=== PATIENT | female | born 1940 ===

== ENCOUNTER 2022-06-12 14:20 | Inpatient (IN) ==
[2022-06-12 17:58] LABS: Basophils % 0.4 % (0.0-0.8); Eosinophils # 0.3 10*3/uL (0.0-0.87); Eosinophils % 2.9 % (0.00-10.9); Hematocrit 36.2 VOL% (35.7-47.0); Hemoglobin 11.5 GM/DL (12.0-16.0); Immature Granulocytes % 0.9 %; Immature Granulocytes Absolute 0.08 #; Lymphocytes # 1.4 10*3/uL (1.4-4.0); Lymphocytes % 15.1 % (21.3-54.2); Mean Corpuscular HGB Conc 31.8 GM/DL (32-36); Mean Corpuscular Volume 91.6 FL (87-102); Mean Platelet Volume 10.3 FL (9.6-12.0); Monocytes # 1.1 10*3/uL (0.11-0.8); Monocytes % 12.3 % (1.7-12.7); Neutrophils % 68.4 % (38.7-73.9); Platelet Count 263 T/CUMM (130-400); Red Blood Count 3.95 MC/CUMM (3.8-5.5); Red Cell Distribution Width 14.6 % (9.3-17.3); White Blood Count 9.3 T/CUMM (4-12)
[2022-06-12 18:10] LABS: Albumin 2.9 G/DL (3.4-5.0); Bilirubin,Total 0.4 MG/DL (0.20-1.00); Calcium 9.3 MG/DL (8.5-10.1); Osmolality,Calculated 284.1 MOS/KG (273-304); Potassium 4.6 MMOL/L (3.5-5.1)
[2022-06-12] MEDS ORDERED: ONDANSETRON 4 MG/2 ML VIAL IV PRN (20:55)
[2022-06-12] MEDS ORDERED: NITROGLYCERIN SL 0.4 MG TABLET SL PRN (21:30)
[2022-06-12] MEDS: INSULIN REGULAR 100 UNIT/ML SUBCUT SCH (23:00)
[2022-06-12] MEDS: HEPARIN DRIP 25,000 UNITS/500 ML PREMIX IV SCH (23:45)
[2022-06-13 05:43] LABS: Basophils % 0.5 % (0.0-0.8); Eosinophils # 0.3 10*3/uL (0.0-0.87); Eosinophils % 3.2 % (0.00-10.9); Hemoglobin 10.5 GM/DL (12.0-16.0); Immature Granulocytes % 0.8 %; Immature Granulocytes Absolute 0.07 #; Lymphocytes # 1.2 10*3/uL (1.4-4.0); Lymphocytes % 13.9 % (21.3-54.2); Mean Corpuscular HGB Conc 30.9 GM/DL (32-36); Mean Corpuscular Volume 90.9 FL (87-102); Monocytes # 1.1 10*3/uL (0.11-0.8); Monocytes % 12.4 % (1.7-12.7); Neutrophils % 69.2 % (38.7-73.9); Platelet Count 240 T/CUMM (130-400); Red Blood Count 3.74 MC/CUMM (3.8-5.5); Red Cell Distribution Width 14.5 % (9.3-17.3); White Blood Count 8.8 T/CUMM (4-12)
[2022-06-13 06:31] LABS: Calcium 9.1 MG/DL (8.5-10.1); Osmolality,Calculated 283.5 MOS/KG (273-304); Potassium 4.5 MMOL/L (3.5-5.1); Thyroid Stimulating Hormone 1.14 uIU/ml (0.358-3.74)
[2022-06-13 08:35] LABS: PT Patient Result 10.8 SECS (10.1-12.1); Partial Thromboplastin Time 44.7 SECS (23.7-32.9)
[2022-06-13] MEDS: EZETIMIBE 10 MG TABLET PO SCH (09:34)
[2022-06-13] MEDS: MAGNESIUM CHLORIDE 64 MG TABLET PO SCH (09:34)
[2022-06-13] MEDS: rOPINIRole 0.25 MG TABLET PO SCH (09:34)
[2022-06-13] MEDS: DAPAGLIFLOZIN 10 MG TABLET PO SCH (09:34)
[2022-06-13] MEDS: POTASSIUM CHLORIDE 20 MEQ TABLET PO SCH (09:35)
[2022-06-13] MEDS: LOSARTAN 50 MG TABLET PO SCH ×2 (09:35→21:01)
[2022-06-13] MEDS: GABAPENTIN 300 MG CAPSULE PO SCH ×3 (09:35→21:00)
[2022-06-13] MEDS: FUROSEMIDE 40 MG TABLET PO SCH (09:35)
[2022-06-13] MEDS: sitaGLIPtin 100 MG TABLET PO SCH (09:35)
[2022-06-13] MEDS: INSULIN REGULAR 100 UNIT/ML SUBCUT SCH ×4 (09:35→21:01)
[2022-06-13] MEDS: MONTELUKAST 10 MG TABLET PO SCH (09:35)
[2022-06-13] MEDS: PANTOPRAZOLE 40 MG TABLET PO SCH ×2 (09:38→21:01)
[2022-06-13] MEDS: carvediloL 3.125 MG TABLET PO SCH (17:13)
[2022-06-13 17:52] LABS: PT Patient Result 11.4 SECS (10.1-12.1)
[2022-06-13 17:58] LABS: Partial Thromboplastin Time 111.3 SECS (23.7-32.9)
[2022-06-13] MEDS ORDERED: DONEPEZIL 5 MG TABLET PO SCH (21:00)
[2022-06-13] MEDS: HEPARIN DRIP 25,000 UNITS/500 ML PREMIX IV SCH (21:01)
[2022-06-14 01:39] LABS: Basophils % 0.3 % (0.0-0.8); Eosinophils # 0.3 10*3/uL (0.0-0.87); Eosinophils % 2.8 % (0.00-10.9); Hematocrit 36.1 VOL% (35.7-47.0); Hemoglobin 11.6 GM/DL (12.0-16.0); Immature Granulocytes % 0.7 %; Immature Granulocytes Absolute 0.06 #; Lymphocytes # 2.1 10*3/uL (1.4-4.0); Lymphocytes % 23.1 % (21.3-54.2); Mean Corpuscular HGB Conc 32.1 GM/DL (32-36); Mean Corpuscular Volume 89.8 FL (87-102); Mean Platelet Volume 10.1 FL (9.6-12.0); Monocytes # 1.3 10*3/uL (0.11-0.8); Monocytes % 13.9 % (1.7-12.7); Neutrophils % 59.2 % (38.7-73.9); Platelet Count 267 T/CUMM (130-400); Red Blood Count 4.02 MC/CUMM (3.8-5.5); Red Cell Distribution Width 14.5 % (9.3-17.3); White Blood Count 9.1 T/CUMM (4-12)
[2022-06-14 01:52] LABS: PT Patient Result 10.9 SECS (10.1-12.1); Partial Thromboplastin Time 88.8 SECS (23.7-32.9)
[2022-06-14 01:55] LABS: Calcium 9.5 MG/DL (8.5-10.1); Osmolality,Calculated 278.5 MOS/KG (273-304); Potassium 3.8 MMOL/L (3.5-5.1)
[2022-06-14] MEDS: INSULIN REGULAR 100 UNIT/ML SUBCUT SCH ×4 (07:31→20:41)
[2022-06-14] MEDS: carvediloL 3.125 MG TABLET PO SCH ×2 (08:38→18:21)
[2022-06-14] MEDS: GABAPENTIN 300 MG CAPSULE PO SCH ×3 (10:15→20:41)
[2022-06-14] MEDS: PANTOPRAZOLE 40 MG TABLET PO SCH ×2 (10:17→20:41)
[2022-06-14] MEDS ORDERED: LIDOCAINE 2% 5 ML VIAL ONE (10:21)
[2022-06-14] MEDS ORDERED: propofoL 200 MG/20 ML VIAL IV ONE (10:21)
[2022-06-14] MEDS ORDERED: PHENYLEPHRINE 1 MG/10 ML SYRINGE IV ONE (10:21)
[2022-06-14] MEDS: LACTATED RINGERS 1,000 ML IV SCH (10:58)
[2022-06-14] MEDS: DAPAGLIFLOZIN 10 MG TABLET PO SCH (13:17)
[2022-06-14] MEDS: rOPINIRole 0.25 MG TABLET PO SCH (13:18)
[2022-06-14] MEDS: LOSARTAN 50 MG TABLET PO SCH ×2 (13:19→20:41)
[2022-06-14] MEDS: POTASSIUM CHLORIDE 20 MEQ TABLET PO SCH (13:19)
[2022-06-14] MEDS: EZETIMIBE 10 MG TABLET PO SCH (13:19)
[2022-06-14] MEDS: FLUCONAZOLE INJ 200 MG/100 ML PREMIX IV SCH (13:19)
[2022-06-14] MEDS: sitaGLIPtin 100 MG TABLET PO SCH (13:19)
[2022-06-14] MEDS: MONTELUKAST 10 MG TABLET PO SCH (13:19)
[2022-06-14] MEDS: MAGNESIUM CHLORIDE 64 MG TABLET PO SCH (13:19)
[2022-06-14] MEDS: FUROSEMIDE 40 MG TABLET PO SCH (13:27)
[2022-06-14] MEDS: ACETAMINOPHEN 325 MG TABLET PO PRN (13:51)
[2022-06-15 05:44] LABS: Basophils % 0.3 % (0.0-0.8); Eosinophils # 0.2 10*3/uL (0.0-0.87); Eosinophils % 3.4 % (0.00-10.9); Hemoglobin 9.5 GM/DL (12.0-16.0); Immature Granulocytes % 1.1 %; Immature Granulocytes Absolute 0.07 #; Lymphocytes # 1.7 10*3/uL (1.4-4.0); Lymphocytes % 26.9 % (21.3-54.2); Mean Corpuscular HGB Conc 32.8 GM/DL (32-36); Mean Corpuscular Volume 89.5 FL (87-102); Mean Platelet Volume 10.3 FL (9.6-12.0); Monocytes % 15.4 % (1.7-12.7); Neutrophils % 52.9 % (38.7-73.9); Platelet Count 219 T/CUMM (130-400); Red Blood Count 3.24 MC/CUMM (3.8-5.5); Red Cell Distribution Width 14.6 % (9.3-17.3); White Blood Count 6.3 T/CUMM (4-12)
[2022-06-15 05:56] LABS: Calcium 8.8 MG/DL (8.5-10.1); Potassium 3.5 MMOL/L (3.5-5.1)
[2022-06-15 05:59] LABS: PT Patient Result 10.8 SECS (10.1-12.1); Partial Thromboplastin Time 69.6 SECS (23.7-32.9)
[2022-06-15] MEDS ORDERED: GLIMEPIRIDE 2 MG TABLET PO SCH (08:00)
[2022-06-15] MEDS: INSULIN REGULAR 100 UNIT/ML SUBCUT SCH ×4 (08:02→23:11)
[2022-06-15] MEDS: HEPARIN DRIP 25,000 UNITS/500 ML PREMIX IV SCH ×2 (08:05)
[2022-06-15] MEDS: rOPINIRole 0.25 MG TABLET PO SCH (09:12)
[2022-06-15] MEDS: EZETIMIBE 10 MG TABLET PO SCH (09:12)
[2022-06-15] MEDS: carvediloL 3.125 MG TABLET PO SCH ×2 (09:13→16:02)
[2022-06-15] MEDS: FUROSEMIDE 40 MG TABLET PO SCH (09:13)
[2022-06-15] MEDS: DAPAGLIFLOZIN 10 MG TABLET PO SCH (09:13)
[2022-06-15] MEDS: POTASSIUM CHLORIDE 20 MEQ TABLET PO SCH (09:13)
[2022-06-15] MEDS: sitaGLIPtin 100 MG TABLET PO SCH (09:13)
[2022-06-15] MEDS: GABAPENTIN 300 MG CAPSULE PO SCH ×3 (09:13→20:57)
[2022-06-15] MEDS: LOSARTAN 50 MG TABLET PO SCH ×2 (09:13→20:57)
[2022-06-15] MEDS: DOCUSATE SODIUM 100 MG CAPSULE PO PRN (09:14)
[2022-06-15] MEDS: MONTELUKAST 10 MG TABLET PO SCH (09:14)
[2022-06-15] MEDS: MAGNESIUM CHLORIDE 64 MG TABLET PO SCH (09:14)
[2022-06-15] MEDS: PANTOPRAZOLE 40 MG TABLET PO SCH ×2 (09:14→20:57)
[2022-06-15] MEDS: FLUCONAZOLE INJ 200 MG/100 ML PREMIX IV SCH (10:38)
[2022-06-15] MEDS: LACTATED RINGERS 1,000 ML IV SCH (10:44)
[2022-06-15] MEDS: APIXABAN 5 MG TABLET PO SCH (20:57)
[2022-06-15] MEDS: ACETAMINOPHEN 325 MG TABLET PO PRN (20:57)
[2022-06-16] MEDS: ACETAMINOPHEN 325 MG TABLET PO PRN (03:48)
[2022-06-16 05:39] LABS: White Blood Count 6.2 T/CUMM (4-12)
[2022-06-16 05:40] LABS: Basophils % 0.5 % (0.0-0.8); Eosinophils # 0.2 10*3/uL (0.0-0.87); Eosinophils % 3.2 % (0.00-10.9); Hematocrit 30.5 VOL% (35.7-47.0); Hemoglobin 9.6 GM/DL (12.0-16.0); Immature Granulocytes % 0.8 %; Immature Granulocytes Absolute 0.05 #; Lymphocytes # 1.8 10*3/uL (1.4-4.0); Lymphocytes % 29.5 % (21.3-54.2); Mean Corpuscular HGB Conc 31.5 GM/DL (32-36); Mean Platelet Volume 10.1 FL (9.6-12.0); Monocytes % 16.4 % (1.7-12.7); Neutrophils % 49.6 % (38.7-73.9); Platelet Count 227 T/CUMM (130-400); Red Blood Count 3.35 MC/CUMM (3.8-5.5); Red Cell Distribution Width 14.6 % (9.3-17.3)
[2022-06-16 06:08] LABS: Calcium 8.7 MG/DL (8.5-10.1); Osmolality,Calculated 279.3 MOS/KG (273-304); Potassium 3.5 MMOL/L (3.5-5.1)
[2022-06-16 06:43] LABS: Eosinophils 2 % (0-10); Lymphocytes 30 % (20-55); Platelet Estimate Normal; Total Cells Counted 100
[2022-06-16] MEDS: EZETIMIBE 10 MG TABLET PO SCH (08:32)
[2022-06-16] MEDS: MONTELUKAST 10 MG TABLET PO SCH (08:33)
[2022-06-16] MEDS: APIXABAN 5 MG TABLET PO SCH ×2 (08:33→21:24)
[2022-06-16] MEDS: MAGNESIUM CHLORIDE 64 MG TABLET PO SCH (08:33)
[2022-06-16] MEDS: GLIMEPIRIDE 2 MG TABLET PO SCH (08:33)
[2022-06-16] MEDS: rOPINIRole 0.25 MG TABLET PO SCH (08:33)
[2022-06-16] MEDS: carvediloL 3.125 MG TABLET PO SCH ×2 (08:33→16:36)
[2022-06-16] MEDS: LOSARTAN 50 MG TABLET PO SCH ×2 (08:34→21:25)
[2022-06-16] MEDS: FUROSEMIDE 40 MG TABLET PO SCH (08:34)
[2022-06-16] MEDS: GABAPENTIN 300 MG CAPSULE PO SCH ×3 (08:34→21:24)
[2022-06-16] MEDS: DAPAGLIFLOZIN 10 MG TABLET PO SCH (08:34)
[2022-06-16] MEDS: sitaGLIPtin 100 MG TABLET PO SCH (08:34)
[2022-06-16] MEDS: PANTOPRAZOLE 40 MG TABLET PO SCH ×2 (08:34→21:25)
[2022-06-16] MEDS: POTASSIUM CHLORIDE 20 MEQ TABLET PO SCH (08:34)
[2022-06-16] MEDS: FLUCONAZOLE INJ 200 MG/100 ML PREMIX IV SCH (10:34)
[2022-06-16] MEDS: INSULIN REGULAR 100 UNIT/ML SUBCUT SCH ×3 (11:09→16:54)
[2022-06-16] MEDS: CYCLOBENZAPRINE 10 MG TABLET PO PRN (14:12)
[2022-06-16] MEDS: DOCUSATE SODIUM 100 MG CAPSULE PO PRN (21:25)
[2022-06-17] MEDS: INSULIN REGULAR 100 UNIT/ML SUBCUT SCH ×5 (00:04→20:56)
[2022-06-17 05:47] LABS: Basophils % 0.3 % (0.0-0.8); Eosinophils # 0.3 10*3/uL (0.0-0.87); Eosinophils % 3.7 % (0.00-10.9); Hematocrit 30.3 VOL% (35.7-47.0); Hemoglobin 9.8 GM/DL (12.0-16.0); Immature Granulocytes % 0.9 %; Immature Granulocytes Absolute 0.06 #; Lymphocytes # 1.8 10*3/uL (1.4-4.0); Lymphocytes % 26.2 % (21.3-54.2); Mean Corpuscular HGB Conc 32.3 GM/DL (32-36); Mean Corpuscular Volume 90.7 FL (87-102); Mean Platelet Volume 9.8 FL (9.6-12.0); Monocytes % 14.3 % (1.7-12.7); Neutrophils % 54.6 % (38.7-73.9); Platelet Count 225 T/CUMM (130-400); Red Blood Count 3.34 MC/CUMM (3.8-5.5); Red Cell Distribution Width 14.6 % (9.3-17.3); White Blood Count 6.7 T/CUMM (4-12)
[2022-06-17 06:07] LABS: Osmolality,Calculated 281.3 MOS/KG (273-304); Potassium 3.6 MMOL/L (3.5-5.1)
[2022-06-17] MEDS: APIXABAN 5 MG TABLET PO SCH ×2 (08:46→20:56)
[2022-06-17] MEDS: PANTOPRAZOLE 40 MG TABLET PO SCH ×2 (08:46→20:56)
[2022-06-17] MEDS: LOSARTAN 50 MG TABLET PO SCH (08:46)
[2022-06-17] MEDS: GABAPENTIN 300 MG CAPSULE PO SCH ×3 (08:46→20:56)
[2022-06-17] MEDS: carvediloL 3.125 MG TABLET PO SCH ×2 (08:46→16:01)
[2022-06-17] MEDS: sitaGLIPtin 100 MG TABLET PO SCH (08:46)
[2022-06-17] MEDS: GLIMEPIRIDE 2 MG TABLET PO SCH (08:47)
[2022-06-17] MEDS: rOPINIRole 0.25 MG TABLET PO SCH (08:47)
[2022-06-17] MEDS: POTASSIUM CHLORIDE 20 MEQ TABLET PO SCH (08:47)
[2022-06-17] MEDS: EZETIMIBE 10 MG TABLET PO SCH (08:47)
[2022-06-17] MEDS: MAGNESIUM CHLORIDE 64 MG TABLET PO SCH (08:47)
[2022-06-17] MEDS: FUROSEMIDE 40 MG TABLET PO SCH (08:47)
[2022-06-17] MEDS: MONTELUKAST 10 MG TABLET PO SCH (08:47)
[2022-06-17] MEDS: DAPAGLIFLOZIN 10 MG TABLET PO SCH (08:47)
[2022-06-17] MEDS: CYCLOBENZAPRINE 10 MG TABLET PO PRN (23:55)
[2022-06-18 05:46] LABS: Basophils % 0.2 % (0.0-0.8); Eosinophils # 0.2 10*3/uL (0.0-0.87); Eosinophils % 2.2 % (0.00-10.9); Hematocrit 35.5 VOL% (35.7-47.0); Hemoglobin 11.4 GM/DL (12.0-16.0); Immature Granulocytes % 0.8 %; Immature Granulocytes Absolute 0.08 #; Lymphocytes # 0.9 10*3/uL (1.4-4.0); Lymphocytes % 8.9 % (21.3-54.2); Mean Corpuscular HGB Conc 32.1 GM/DL (32-36); Mean Corpuscular Volume 89.4 FL (87-102); Mean Platelet Volume 9.9 FL (9.6-12.0); Monocytes # 1.3 10*3/uL (0.11-0.8); Monocytes % 12.5 % (1.7-12.7); Neutrophils % 75.4 % (38.7-73.9); Platelet Count 255 T/CUMM (130-400); Red Blood Count 3.97 MC/CUMM (3.8-5.5); Red Cell Distribution Width 14.7 % (9.3-17.3)
[2022-06-18 06:09] LABS: Calcium 9.4 MG/DL (8.5-10.1); Osmolality,Calculated 280.4 MOS/KG (273-304); Potassium 4.2 MMOL/L (3.5-5.1)
[2022-06-18] MEDS ORDERED: LOSARTAN 50 MG TABLET PO SCH (09:00)
[2022-06-18] MEDS: POTASSIUM CHLORIDE 20 MEQ TABLET PO SCH (09:52)
[2022-06-18] MEDS: EZETIMIBE 10 MG TABLET PO SCH (09:52)
[2022-06-18] MEDS: GLIMEPIRIDE 2 MG TABLET PO SCH (09:52)
[2022-06-18] MEDS: sitaGLIPtin 100 MG TABLET PO SCH (09:52)
[2022-06-18] MEDS: DAPAGLIFLOZIN 10 MG TABLET PO SCH (09:52)
[2022-06-18] MEDS: rOPINIRole 0.25 MG TABLET PO SCH (09:52)
[2022-06-18] MEDS: APIXABAN 5 MG TABLET PO SCH ×2 (09:53→20:48)
[2022-06-18] MEDS: FUROSEMIDE 40 MG TABLET PO SCH (09:53)
[2022-06-18] MEDS: MAGNESIUM CHLORIDE 64 MG TABLET PO SCH (09:53)
[2022-06-18] MEDS: GABAPENTIN 300 MG CAPSULE PO SCH ×3 (09:53→20:48)
[2022-06-18] MEDS: MONTELUKAST 10 MG TABLET PO SCH (09:53)
[2022-06-18] MEDS: carvediloL 3.125 MG TABLET PO SCH ×2 (09:53→16:51)
[2022-06-18] MEDS: PANTOPRAZOLE 40 MG TABLET PO SCH ×2 (09:53→20:47)
[2022-06-18] MEDS: INSULIN REGULAR 100 UNIT/ML SUBCUT SCH ×4 (09:57→20:48)
[2022-06-19] MEDS: ACETAMINOPHEN 325 MG TABLET PO PRN (03:48)
[2022-06-19 05:50] LABS: Basophils % 0.3 % (0.0-0.8); Eosinophils % 0.6 % (0.00-10.9); Hematocrit 33.8 VOL% (35.7-47.0); Hemoglobin 10.8 GM/DL (12.0-16.0); Immature Granulocytes Absolute 0.06 #; Lymphocytes % 15.5 % (21.3-54.2); Mean Corpuscular Volume 89.7 FL (87-102); Mean Platelet Volume 9.9 FL (9.6-12.0); Monocytes # 1.4 10*3/uL (0.11-0.8); Monocytes % 22.5 % (1.7-12.7); Neutrophils % 60.1 % (38.7-73.9); Platelet Count 227 T/CUMM (130-400); Red Blood Count 3.77 MC/CUMM (3.8-5.5); Red Cell Distribution Width 15.1 % (9.3-17.3); White Blood Count 6.2 T/CUMM (4-12)
[2022-06-19 06:07] LABS: Calcium 9.2 MG/DL (8.5-10.1); Osmolality,Calculated 272.8 MOS/KG (273-304); Potassium 3.8 MMOL/L (3.5-5.1)
[2022-06-19 06:20] LABS: Lymphocytes 4 % (20-55); Nucleated Red Blood Cells 2 /100 WBC (0-5); Total Cells Counted 100
[2022-06-19 06:21] LABS: Hypochromia Slight; Microcytosis Slight; Platelet Estimate Adequate
[2022-06-19 06:22] LABS: Ovalocytes Slight
[2022-06-19] MEDS ORDERED: SODIUM CHLORIDE 0.9% 1,000 ML IV SCH (08:30)
[2022-06-19] MEDS: INSULIN REGULAR 100 UNIT/ML SUBCUT SCH ×4 (08:35→22:59)
[2022-06-19] MEDS: rOPINIRole 0.25 MG TABLET PO SCH (09:52)
[2022-06-19] MEDS: GABAPENTIN 100 MG CAPSULE PO SCH ×3 (09:52→23:00)
[2022-06-19] MEDS: PANTOPRAZOLE 40 MG TABLET PO SCH ×2 (09:52→23:00)
[2022-06-19] MEDS: EZETIMIBE 10 MG TABLET PO SCH (09:52)
[2022-06-19] MEDS: DAPAGLIFLOZIN 10 MG TABLET PO SCH (09:52)
[2022-06-19] MEDS: MAGNESIUM CHLORIDE 64 MG TABLET PO SCH (09:52)
[2022-06-19] MEDS: carvediloL 3.125 MG TABLET PO SCH ×2 (09:52→16:52)
[2022-06-19] MEDS: GLIMEPIRIDE 2 MG TABLET PO SCH (09:52)
[2022-06-19] MEDS: MONTELUKAST 10 MG TABLET PO SCH (09:52)
[2022-06-19] MEDS: APIXABAN 5 MG TABLET PO SCH ×2 (09:52→23:00)
[2022-06-19] MEDS: POTASSIUM CHLORIDE 20 MEQ TABLET PO SCH (09:52)
[2022-06-19] MEDS: FUROSEMIDE 40 MG TABLET PO SCH (11:59)
[2022-06-19 12:20] LABS: Mucus,Urine Occasional /LPF (Occasional); RBC,Urine 1 /HPF (0-4); Squamous Epithelial Cell,Urine Occasional /HPF (0-10)
[2022-06-19 12:21] LABS: Bilirubin,Urine Negative (Negative); Blood, Urine Negative (Negative); Glucose,Urine (UA) 250 mg/dL (Negative); Ketones,Urine Negative (Negative); Nitrite,Urine Negative (Negative); Protein,Urine 30 mg/dL (Negative); Urine Appearance Clear (Clear); Urine Color Yellow (Yellow); Urine Specific Gravity 1.015 (1.001-1.035); Urine Urobilinogen 0.2 eU/dL (<2.0)
[2022-06-19] MEDS: MEROPENEM 500 MG in SODIUM CHLORIDE 0.9% 100 ML IV SCH (23:00)
[2022-06-20] MEDS: MEROPENEM 500 MG in SODIUM CHLORIDE 0.9% 100 ML IV SCH ×3 (03:50→21:36)
[2022-06-20 04:39] LABS: Basophils % 0.3 % (0.0-0.8); Hematocrit 31.7 VOL% (35.7-47.0); Hemoglobin 10.2 GM/DL (12.0-16.0); Immature Granulocytes Absolute 0.06 #; Lymphocytes # 1.7 10*3/uL (1.4-4.0); Mean Corpuscular HGB Conc 32.2 GM/DL (32-36); Mean Corpuscular Volume 89.3 FL (87-102); Mean Platelet Volume 9.5 FL (9.6-12.0); Monocytes # 1.4 10*3/uL (0.11-0.8); Monocytes % 22.9 % (1.7-12.7); Neutrophils % 48.8 % (38.7-73.9); Platelet Count 192 T/CUMM (130-400); Red Blood Count 3.55 MC/CUMM (3.8-5.5); Red Cell Distribution Width 14.8 % (9.3-17.3); White Blood Count 6.3 T/CUMM (4-12)
[2022-06-20 05:01] LABS: Osmolality,Calculated 277.5 MOS/KG (273-304); Potassium 3.6 MMOL/L (3.5-5.1)
[2022-06-20 05:10] LABS: Hypochromia Slight; Lymphocytes 20 % (20-55); Microcytosis Slight; Platelet Estimate Adequate; Total Cells Counted 100
[2022-06-20] MEDS: SODIUM CHLORIDE 0.9% 1,000 ML IV SCH ×2 (07:49→21:36)
[2022-06-20] MEDS: GABAPENTIN 100 MG CAPSULE PO SCH ×2 (09:31→15:13)
[2022-06-20] MEDS: EZETIMIBE 10 MG TABLET PO SCH (09:31)
[2022-06-20] MEDS: DAPAGLIFLOZIN 10 MG TABLET PO SCH (09:31)
[2022-06-20] MEDS: MAGNESIUM CHLORIDE 64 MG TABLET PO SCH (09:32)
[2022-06-20] MEDS: PANTOPRAZOLE 40 MG TABLET PO SCH ×2 (09:32→21:35)
[2022-06-20] MEDS: MONTELUKAST 10 MG TABLET PO SCH (09:32)
[2022-06-20] MEDS: carvediloL 6.25 MG TABLET PO SCH ×2 (09:32→18:44)
[2022-06-20] MEDS: APIXABAN 5 MG TABLET PO SCH ×2 (09:32→21:35)
[2022-06-20] MEDS: rOPINIRole 0.25 MG TABLET PO SCH (09:32)
[2022-06-20] MEDS: GLIMEPIRIDE 2 MG TABLET PO SCH (09:33)
[2022-06-20] MEDS: INSULIN REGULAR 100 UNIT/ML SUBCUT SCH ×4 (09:33→21:36)
[2022-06-20] MEDS: POTASSIUM CHLORIDE 20 MEQ TABLET PO SCH (09:33)
[2022-06-21] MEDS: MEROPENEM 500 MG in SODIUM CHLORIDE 0.9% 100 ML IV SCH ×3 (04:14→21:25)
[2022-06-21 04:47] LABS: Basophils % 0.2 % (0.0-0.8); Eosinophils # 0.1 10*3/uL (0.0-0.87); Eosinophils % 1.1 % (0.00-10.9); Hematocrit 31.8 VOL% (35.7-47.0); Hemoglobin 10.1 GM/DL (12.0-16.0); Immature Granulocytes % 0.4 %; Immature Granulocytes Absolute 0.02 #; Lymphocytes # 1.8 10*3/uL (1.4-4.0); Mean Corpuscular HGB Conc 31.8 GM/DL (32-36); Mean Corpuscular Volume 90.6 FL (87-102); Neutrophils % 45.3 % (38.7-73.9); Platelet Count 192 T/CUMM (130-400); Red Blood Count 3.51 MC/CUMM (3.8-5.5); Red Cell Distribution Width 14.7 % (9.3-17.3); White Blood Count 5.3 T/CUMM (4-12)
[2022-06-21 05:14] LABS: Eosinophils 1 % (0-10); Lymphocytes 29 % (20-55); Total Cells Counted 100
[2022-06-21 05:15] LABS: Microcytosis 1+; Ovalocytes Slight; Platelet Estimate Adequate
[2022-06-21 05:20] LABS: Osmolality,Calculated 274.7 MOS/KG (273-304)
[2022-06-21] MEDS: INSULIN REGULAR 100 UNIT/ML SUBCUT SCH ×4 (07:30→21:26)
[2022-06-21] MEDS: APIXABAN 5 MG TABLET PO SCH ×2 (08:50→21:26)
[2022-06-21] MEDS: rOPINIRole 0.25 MG TABLET PO SCH (08:50)
[2022-06-21] MEDS: POTASSIUM CHLORIDE 20 MEQ TABLET PO SCH (08:50)
[2022-06-21] MEDS: PANTOPRAZOLE 40 MG TABLET PO SCH ×2 (08:50→21:26)
[2022-06-21] MEDS: EZETIMIBE 10 MG TABLET PO SCH (08:50)
[2022-06-21] MEDS: DAPAGLIFLOZIN 10 MG TABLET PO SCH (08:50)
[2022-06-21] MEDS: ACETAMINOPHEN 325 MG TABLET PO PRN (08:50)
[2022-06-21] MEDS: MAGNESIUM CHLORIDE 64 MG TABLET PO SCH (08:50)
[2022-06-21] MEDS: MONTELUKAST 10 MG TABLET PO SCH (08:50)
[2022-06-21] MEDS: GLIMEPIRIDE 2 MG TABLET PO SCH (08:51)
[2022-06-21] MEDS: carvediloL 6.25 MG TABLET PO SCH ×2 (08:53→17:19)
[2022-06-21] MEDS: SODIUM CHLORIDE 0.9% 1,000 ML IV SCH (10:56)
[2022-06-22] MEDS: SODIUM CHLORIDE 0.9% 1,000 ML IV SCH (00:45)
[2022-06-22] MEDS: MEROPENEM 500 MG in SODIUM CHLORIDE 0.9% 100 ML IV SCH ×2 (04:00→13:24)
[2022-06-22 05:05] LABS: Basophils % 0.3 % (0.0-0.8); Eosinophils # 0.1 10*3/uL (0.0-0.87); Eosinophils % 1.9 % (0.00-10.9); Hematocrit 34.5 VOL% (35.7-47.0); Hemoglobin 10.9 GM/DL (12.0-16.0); Immature Granulocytes % 0.4 %; Immature Granulocytes Absolute 0.03 #; Lymphocytes # 2.4 10*3/uL (1.4-4.0); Lymphocytes % 32.6 % (21.3-54.2); Mean Corpuscular HGB Conc 31.6 GM/DL (32-36); Mean Corpuscular Volume 90.6 FL (87-102); Mean Platelet Volume 9.9 FL (9.6-12.0); Monocytes # 0.9 10*3/uL (0.11-0.8); Monocytes % 12.8 % (1.7-12.7); Platelet Count 198 T/CUMM (130-400); Red Blood Count 3.81 MC/CUMM (3.8-5.5); Red Cell Distribution Width 14.8 % (9.3-17.3); White Blood Count 7.2 T/CUMM (4-12)
[2022-06-22 05:21] LABS: Calcium 8.6 MG/DL (8.5-10.1); Osmolality,Calculated 274.7 MOS/KG (273-304); Potassium 4.4 MMOL/L (3.5-5.1)
[2022-06-22] MEDS: INSULIN REGULAR 100 UNIT/ML SUBCUT SCH ×2 (08:36→12:27)
[2022-06-22] MEDS ORDERED: hydrALAZINE 10 MG TABLET PO SCH (09:00)
[2022-06-22] MEDS ORDERED: ISOSORBIDE DINITRATE 10 MG TABLET PO SCH (09:00)
[2022-06-22] MEDS ORDERED: APIXABAN 5 MG TABLET PO SCH (09:00)
[2022-06-22] MEDS: carvediloL 6.25 MG TABLET PO SCH (10:49)
[2022-06-22] MEDS: EZETIMIBE 10 MG TABLET PO SCH (10:49)
[2022-06-22] MEDS: DAPAGLIFLOZIN 10 MG TABLET PO SCH (10:49)
[2022-06-22] MEDS: PANTOPRAZOLE 40 MG TABLET PO SCH (10:50)
[2022-06-22] MEDS: GLIMEPIRIDE 2 MG TABLET PO SCH (10:50)
[2022-06-22] MEDS: rOPINIRole 0.25 MG TABLET PO SCH (10:50)
[2022-06-22] MEDS: MONTELUKAST 10 MG TABLET PO SCH (10:50)
[2022-06-22] MEDS: POTASSIUM CHLORIDE 20 MEQ TABLET PO SCH (10:50)
[2022-06-22] MEDS: MAGNESIUM CHLORIDE 64 MG TABLET PO SCH (10:51)
[2022-06-22 11:07] VITALS: BP 99/67
== END 2022-06-22 13:27 | DRG 300 ==
LOC: N.ED 14:20 → SUATTDRO 20:50 → N.3E 20:50 → N.TELEN 06-19 12:52
PROVIDERS: ADMIT Hospitalist; ATTEND Emergency Medicine